=== PATIENT | male | born 1965 | race Caucasian/White ===

== ENCOUNTER 2019-10-31 12:57 | Inpatient (IN) | payer BC, SELFPAY ==
--- NOTE | ~2019-10-31 | XR_ITS ---
EXAMINATION: XR abdomen obstructive series DATE: 10/31/2019 14:02 INDICATION: Lower abdominal pain. Constipation. TECHNIQUE: Supine and upright views of the abdomen. FINDINGS: No prior studies for comparison. The visualized lung parenchyma is normal.. There is a nonobstructive bowel gas pattern. Gas and stool are seen throughout the colon to the level of the rectum. There is no free air. IMPRESSION: 1. No acute abdominal abnormality. Reviewed, dictated and finalized at location A.
--- NOTE | ~2019-10-31 | CT_ITS ---
EXAMINATION: CT abdomen pelvis w con DATE: 10/31/2019 14:35 INDICATION: Lower abdominal pain. Leukocytosis. TECHNIQUE: Computed tomography (CT) of the abdomen and pelvis was performed with 100 cc Omnipaque 350 intravenous contrast. The dose-length product was 592.62 mGy-cm. Automated exposure control and iter ative reconstruction technique were employed. COMPARISON: No prior studies for comparison. FINDINGS: Lung bases are unremarkable. Small subpleural bleb left lower lobe. Heart size normal. Smal l hiatal hernia. No significant pleural or pericardial effusion. Fatty infiltration of the liver. There are gallstones. Spleen, pancreas, adrenal glands and right kid vin are unremarkable. 3 mm nonobstructing left renal stone. There is thickening of the sigmoid colon with surrounding inflammation, consistent with acute diverti culitis. There is a low-density component containing gas contiguous with the sigmoid colon, suspiciou s for developing peridiverticular abscess. No obstruction. No free air is identified. No acute osseou s abnormality. IMPRESSION: 1. Acute sigmoid diverticulitis with probable developing peridiverticular abscess. 2: Cholelithiasis. 3: Nonobstructing left nephrolithiasis. Reviewed, dictated and finalized at location A. IMPRESSION: 1. Acute sigmoid diverticulitis with probable developing peridiverticular absce ss. 2: Cholelithiasis. 3: Nonobstructing left nephrolithiasis.
[2019-10-31 13:02] VITALS: BP 110/79; PULSE 94; RESP 16; TEMP 36.6; O2SAT 99
[2019-10-31 13:35] LABS: Basophils Absolute Auto 0.1 K/mm3 (0.0-0.1); Basophils Percent Auto 0.3 % (0.2-1.2); Eosinophils Absolute Auto 0.1 K/mm3 (0-0.3); Eosinophils Percent Auto 0.7 % (0-4.4); Hemoglobin 15.4 g/dL (14.0-18.0); Immature Granulocyte Absolute 0.09 K/mm3 (0.00-0.031); Immature Granulocyte Percent A 0.5 % (0-0.5); Lymphocytes Absolute Auto 2.44 K/mm3 (0.9-3.2); Lymphocytes Percent Auto 12.3 % (18.3-44.2); Mean Corpuscular HGB Conc 33.5 g/dl (32-36); Mean Corpuscular Volume 89.5 fl (80-100); Mean Platelet Volume 10.6 fl (7.4-10.4); Monocytes Absolute Auto 2.5 K/mm3 (0.1-0.6); Monocytes Percent Auto 12.8 % (2.6-8.5); Neutrophils Absolute Auto 14.6 K/mm3 (1.3-6.7); Neutrophils Percent Auto 73.4 % (45.5-73.1); Platelet Count Result 322 k/mm3 (150-375); Red Blood Count 5.14 M/mm3 (4.6-6.20); Red Cell Distribution Width 13.6 % (11.5-14.5); White Blood Count 19.8 K/mm3 (4.5-10.0)
--- NOTE | 2019-10-31 13:37 | ED.ABDPAIN ---
HPI - Abdominal Pain General Chief Complaint: Abdominal Pain <RHETT Figueroa Last Filed: 10/31/19 15:29> Stated Complaint: LOWER ABD PAIN <RHETT Figueroa Last Filed: 10/31/19 15:29> Time Seen by Provider: 10/31/19 13:14 <RHETT Figueroa Last Filed: 10/31/19 15:29> Source: patient <RHETT Figueroa Last Filed: 10/31/19 15:29> Mode of arrival: ambulatory <RHETT Figueroa Last Filed: 10/31/19 15:29> Limitations: no limitations <RHETT Figueroa Last Filed: 10/31/19 15:29> History of Present Illness HPI narrative: This is a 54 year old male that presents to the ER for lower abdominal pain x 4 days. Reports problems with constipation. Reports he took ex-lax 2 days ago and had a BM. Reports he has not been able to go since. Reports the pain was so bad last night it was keeping him up. Denies fever, vomiting, diarrhea, hematochezia, or dysuria. <RHETT Figueroa Last Filed: 10/31/19 15:29> Related Data Home Medications: Home Medications Medication Instructions Recorded Confirmed No Home Medications 10/31/19 10/31/19 <RHETT Figueroa Last Filed: 10/31/19 15:29> Allergies/Adverse Reactions: Allergies Allergy/AdvReac Type Severity Reaction Status Date / Time No Known Allergies Allergy Verified 07/01/19 12:17 <RHETT Figueroa Last Filed: 10/31/19 15:29> Review of Systems Review of Systems: Narrative: CONSTITUTIONAL: Denies fever GASTROINTESTINAL: Reports abdominal pain. Denies nausea, vomiting, or diarrhea. GENITOURINARY: Denies dysuria or hematuria. <RHETT Figueroa Last Filed: 10/31/19 15:29> All systems reviewed & are unremarkable except as noted in HPI and below <RHETT Figueroa Last Filed: 10/31/19 15:29> [facility] Social History Social History: Social History Smoking status: Heavy tobacco smoker Alcohol intake: current Substance use: never <Sofia Byrne PA-C - Last Filed: 10/31/19 15:29> Exam Narrative: Exam Narrative: GENERAL: Well-appearing, well-nourished, and in no acute distress. HEAD: Normocephalic, atraumatic. EYES: EOMI. CHEST: Clear to auscultation. No respiratory distress. No wheezes rales or rhonchi HEART: Regular rate and rhythm. No murmur heard. Normal peripheral pulses. ABDOMEN: Soft, nondistended, normal active bowel sounds. Mild tenderness to palpation throughout the lower abdomen, without guarding EXTREMITIES: Normal range of motion. No edema. SKIN: Warm, dry, no rash. NEURO: No focal deficits. Alert and oriented x3. PSYCH: Normal mood and affect <Sofia Byrne PA-C - Last Filed: 10/31/19 15:29> Course RFID DEVELOPER/PA Physician Supervision For this encounter, I have reviewed the PA documentation, treatment plan and medical decision making: And I have had [id number] time with the patient. On exam the abdomen is soft nondistended tender to palpation right lower quadrant left lower quadrant, no rebound or guarding agrees plan for admission for IV antibiotics and further inpatient treatment at this time discussed with patient all questions answered <Kobi Biswas DO - Last Filed: 10/31/19 15:22> Consultations Consultation #1: Spoke with Dr. Nieto about patient and work-up who will admit the patient for further IV antibiotics and observation. <Sofia Byrne PA-C - Last Filed: 10/31/19 15:29> Date: 10/31/19 <RHETT Figueroa Last Filed: 10/31/19 15:29> Time: : <RHETT Figueroa Last Filed: 10/31/19 15:29> Vital Signs Vital signs: Vital Signs Temperature 97.8 F 10/31/19 13:02 Pulse Rate 94 10/31/19 13:02 Respiratory Rate 16 10/31/19 13:02 Blood Pressure 110/79 10/31/19 13:02 Pulse Oximetry 99 10/31/19 13:02 Temperature 97.8 F 10/31/19 13:02 Pulse Rate 86 10/31/19 14:43 Respiratory Rate 18 10/31/19 14:
[2019-10-31 13:40] LABS: Alanine Aminotransferase 100 U/L (4-50); Albumin Level 4.2 g/dL (3.5-5.1); Alkaline Phosphatase 203 U/L (38-126); Aspartate Amino Transferase 59 U/L (17-59); Bilirubin,Total 0.8 mg/dL (0.2-1.3); Blood Urea Nitrogen 12 mg/dL (9-20); Calcium 9.4 mg/dL (8.4-10.2); Carbon Dioxide 26 mmol/L (22-30); Chloride 105 mmol/L (98-107); Estimated CRCL calculation 83 ml/min; Estimated Glomerular Filt Rate > 60; Glucose 120 mg/dL (75-110); Lipase 53 U/L (23-300); Potassium 4.1 mmol/L (3.4-5.0); Sodium 137 mmol/L (137-145)
[2019-10-31 14:21] LABS: Add Urine Microscopic? NO; Appearance Urine Clear (Clear); Bilirubin Urine Negative (Negative); Blood Urine Negative (Negative); Color Urine Yellow (Yellow); Glucose Urine UA Negative (Negative); Ketones Urine Negative (Negative); Leukocyte Esterase Ur Negative LEU/UL (Negative); Nitrate Urine Negative (Negative); Protein Urine Negative (Negative); Specific Grav Ur 1.016 (1.001-1.035); Urobilinogen Urine Negative mg/dL (<2.0)
[2019-10-31 14:43] VITALS: BP 108/74; PULSE 86; RESP 18; O2SAT 94
[2019-10-31 15:27] VITALS: BP 112/78; PULSE 90; RESP 20; O2SAT 98
--- NOTE | 2019-10-31 16:15 | ADMGEN ---
This patient, Chavez Guerrero, was admitted to Medical Room 343-01. Patient/family oriented to hospital policies and general routines including ID bracelet, bed and alarms, visiting hours, pain management, procedures, bathroom and other care routines, personal items, smoking policy, room service/diet, and visiting hours. Valuables list has been completed. Information on how to activate the Rapid Response Team has been discussed. Patient/Family are encouraged to report perceived risks to care and to ask questions if they do not understand what they are told or what they should do.
[2019-10-31] MEDS: SODIUM CHLORIDE 0.9% IV 1,000 ML 125 ML IV CONT (16:59)
[2019-10-31 17:18] VITALS: BMI 26.8
[2019-10-31 17:30] VITALS: PULSE 90; RESP 20; O2SAT 98
[2019-10-31] MEDS: IBUPROFEN IV 800 MG/200 ML 800 MG/200 ML BAG 400 MG IVPB (17:33)
[2019-10-31 20:01] VITALS: BP 103/64; PULSE 72; RESP 16; TEMP 36.2; O2SAT 96
[2019-10-31] MEDS: ENOXAPARIN 40 MG/0.4 ML SYRINGE SUB-Q (20:32)
[2019-10-31] MEDS: FAMOTIDINE 20 MG/2 ML VIAL IV PUSH (20:33)
[2019-10-31] MEDS: IBUPROFEN IV 800 MG/200 ML 800 MG/200 ML BAG 150 MG IVPB (23:22)
[2019-11-01] MEDS: IBUPROFEN IV 800 MG/200 ML 800 MG/200 ML BAG 150 MG IVPB ×4 (05:06→23:31)
[2019-11-01] MEDS: SODIUM CHLORIDE 0.9% IV 1,000 ML 125 ML IV CONT ×2 (05:06→17:20)
[2019-11-01 06:00] VITALS: BP 116/66; PULSE 88; RESP 16; TEMP 37.2; O2SAT 93
[2019-11-01 06:02] LABS: Basophils Absolute Auto 0.1 K/mm3 (0.0-0.1); Basophils Percent Auto 0.5 % (0.2-1.2); Eosinophils Absolute Auto 0.2 K/mm3 (0-0.3); Eosinophils Percent Auto 1.1 % (0-4.4); Hematocrit 44.6 % (42.0-52.0); Hemoglobin 14.6 g/dL (14.0-18.0); Immature Granulocyte Absolute 0.07 K/mm3 (0.00-0.031); Immature Granulocyte Percent A 0.4 % (0-0.5); Lymphocytes Absolute Auto 2.23 K/mm3 (0.9-3.2); Lymphocytes Percent Auto 13.2 % (18.3-44.2); Mean Corpuscular HGB Conc 32.7 g/dl (32-36); Mean Corpuscular Hemoglobin 29.5 pg (26-34); Mean Corpuscular Volume 90.1 fl (80-100); Mean Platelet Volume 10.7 fl (7.4-10.4); Monocytes Absolute Auto 1.8 K/mm3 (0.1-0.6); Monocytes Percent Auto 10.8 % (2.6-8.5); Neutrophils Absolute Auto 12.5 K/mm3 (1.3-6.7); Platelet Count Result 311 k/mm3 (150-375); Red Blood Count 4.95 M/mm3 (4.6-6.20); Red Cell Distribution Width 13.7 % (11.5-14.5); White Blood Count 16.9 K/mm3 (4.5-10.0)
[2019-11-01 06:16] LABS: Alanine Aminotransferase 71 U/L (4-50); Albumin Level 3.8 g/dL (3.5-5.1); Alkaline Phosphatase 180 U/L (38-126); Aspartate Amino Transferase 42 U/L (17-59); Bilirubin,Total 1.7 mg/dL (0.2-1.3); Blood Urea Nitrogen 12 mg/dL (9-20); Calcium 8.5 mg/dL (8.4-10.2); Carbon Dioxide 23 mmol/L (22-30); Chloride 107 mmol/L (98-107); Estimated CRCL calculation 105 ml/min; Estimated Glomerular Filt Rate > 60; Glucose 77 mg/dL (75-110); Potassium 3.9 mmol/L (3.4-5.0); Sodium 138 mmol/L (137-145)
[2019-11-01] MEDS: FAMOTIDINE 20 MG/2 ML VIAL IV PUSH ×2 (07:58→20:12)
[2019-11-01] MEDS: NICOTINE (*PBKC) 21 MG PATCH 1 PATCH TRANSDERM (08:00)
--- NOTE | 2019-11-01 11:49 | PCDIET ---
Nutrition consult for Low fiber diet instruction. Educated patient via Telephone due to COVID 19 precautions. Patient instructed on a low fiber diet today. All info in patient instructions for discharge. Thank you for the consult.
[2019-11-01 14:00] VITALS: BP 116/58; PULSE 78; RESP 16; TEMP 36.3; O2SAT 97
--- NOTE | 2019-11-01 15:05 | PM.IMHP ---
H&P: HPI History of Present Illness Chief complaint: peridiverticular abscess Narrative: Chavez Guerrero is a 54 year old male who came to the emergency room yesterday with persistent and severe lower abdominal pain. He is a very healthy man. He works as intermodal owner operator truck driver. He does smoke cigarettes but takes no medications. His pain started 4 days ago in the lower abdomen. He noticed this because the day prior, 5 days ago, he had a bowel movement and experience lower pelvic pain with the bowel movement. He is normally regular, having bowel movements every day. After going 2 days without a bowel movement, he took 2 Ex-Lax tabs. He did not have any results and the following day he took 2 more ex lax in the morning. He did go ahead and have a bowel movement but the pain became severe. He had pain with the bowel movement. The pain was severe enough that he could not sleep. He came to the emergency room on October 30. He was afebrile with normal vital signs. He did have some tenderness throughout his lower abdomen. His white blood cell count was quite elevated at 19,800. He had a CT scan which showed acute diverticulitis possibly with a developing perisigmoid abscess. Incidentally, gallstones were also noted. The patient was given IV ibuprofen last night. He has been on antibiotics. This morning he tells me that his pain is gone. He feels much better and would like to eat. He has never had pain like this before. He has never had diverticulitis before. Review of Systems Review of Systems: All systems reviewed & are unremarkable except as noted in HPI and below Constitutional: Constitutional: Denies headache(s) ENT: Denies headache(s) Cardiovascular: Cardiovascular: Denies chest pain and Denies dyspnea Respiratory: Respiratory: Denies cough and Denies dyspnea Gastrointestinal: Gastrointestinal: Reports as per HPI, Denies bloating, Denies constipation and Denies nausea Neurologic: Denies confusion and Denies headache(s) Psychiatric: Psychiatric: Denies confusion [facility] Family History Family History Father Family history of cardiovascular disease, Onset Age: 61 Mother Family history of lung cancer, Onset Age: 84 Social History Social History Smoking packs per day: 1 Smoking cigarettes per day: 20.0 Years smoked: 43 Smoking pack-years: 43.00 Smoking status: Heavy tobacco smoker Tobacco type: cigarettes Second hand tobacco smoke exposure: Yes Alcohol intake: current Drinks per week: 1 Substance use: never Substance use type: does not use Spiritual care concerns: No Agree to blood products: Yes Meds Home Medications and Allergies Home Medications Medication Instructions Recorded Confirmed Type No Home Medications 10/31/19 10/31/19 History Allergies Allergy/AdvReac Type Severity Reaction Status Date / Time No Known Allergies Allergy Verified 07/01/19 12:17 Vital Signs Vital Signs - 24 hr 10/31/19 15:27 10/31/19 17:30 10/31/19 20:01 Temperature 36.2 C L Pulse Rate 90 90 72 Respiratory Rate 20 20 16 Blood Pressure 112/78 103/64 Pulse Oximetry 98 98 96 11/01/19 06:00 11/01/19 14:00 Temperature 37.2 C 36.3 C L Pulse Rate 88 78 Respiratory Rate 16 16 Blood Pressure 116/66 116/58 L Pulse Oximetry 93 97 Exam Const: General: cooperative, comfortable, no acute distress, alert and awake HENMT: Head: normocephalic, atraumatic, no contusions and no scalp lesions Eyes: Conjunctivae: conjunctivae normal Sclera: sclerae normal Pupils: Equal, round and reactive pupils present EOM: EOMs intact bilaterally Neck: Neck: normal visual inspection, no lymphadenopathy, trachea midline, supple, nontender and no JVD Thyroid: abnormal thyroid Resp: Effort & Inspection: normal respiratory effort Auscultation: clear to auscultation bilaterally Cardio: Rate: regu
[2019-11-01] MEDS: ENOXAPARIN 40 MG/0.4 ML SYRINGE SUB-Q (20:12)
[2019-11-01 20:13] VITALS: BP 110/64; PULSE 79; RESP 16; TEMP 36.4; O2SAT 96
[2019-11-02] MEDS: SODIUM CHLORIDE 0.9% IV 1,000 ML 125 ML IV CONT (04:16)
[2019-11-02 05:11] LABS: Hematocrit 39.2 % (42.0-52.0); Hemoglobin 13.1 g/dL (14.0-18.0); Mean Corpuscular HGB Conc 33.4 g/dl (32-36); Mean Corpuscular Hemoglobin 29.6 pg (26-34); Mean Corpuscular Volume 88.7 fl (80-100); Mean Platelet Volume 10.1 fl (7.4-10.4); Platelet Count Result 325 k/mm3 (150-375); Red Blood Count 4.42 M/mm3 (4.6-6.20); Red Cell Distribution Width 13.3 % (11.5-14.5); White Blood Count 8.9 K/mm3 (4.5-10.0)
[2019-11-02 05:24] VITALS: BP 118/76; PULSE 64; RESP 14; TEMP 36.8; O2SAT 97
[2019-11-02 05:31] LABS: Blood Urea Nitrogen 10 mg/dL (9-20); Carbon Dioxide 25 mmol/L (22-30); Chloride 111 mmol/L (98-107); Estimated CRCL calculation 105 ml/min; Estimated Glomerular Filt Rate > 60; Glucose 83 mg/dL (75-110); Potassium 3.9 mmol/L (3.4-5.0); Sodium 137 mmol/L (137-145)
[2019-11-02] MEDS: IBUPROFEN IV 800 MG/200 ML 800 MG/200 ML BAG 150 MG IVPB (05:33)
--- NOTE | 2019-11-02 07:24 | PM.DS ---
DS: Diagnosis Admitting Diagnosis Admitting Diagnosis: Diverticulitis of large intestine without perforation or abscess without bleeding Discharge Diagnosis (1) Diverticulitis of sigmoid colon: Code(s): K57.32 - Diverticulitis of large intestine without perforation or abscess without bleeding Status: Acute (2) Smoker: Code(s): F17.200 - Nicotine dependence, unspecified, uncomplicated Status: Chronic DS: Summary Time Spent with Patient Time attestation: Total time spent providing and/or coordinating discharge services: Patient is a 54-year-old man who was admitted on 10/31/2019 with a 4 day history of lower abdominal pain. He had pain with bowel movement and constipation. He took to do collects tabs on 2 different occasions and had a bowel movement but the pain got worse. He came to the emergency room where he was noted to be tender in the lower abdomen with an elevated white blood cell count. CT scan showed acute diverticulitis with possible abscess developing. He was placed on bowel rest, analgesics, and IV Zosyn antibiotics. His pain went away the night of admission. It did not recur. His white count decreased to normal by hospital day 2. He was tolerating a low residue diet and had spoken with the dietitian for instructions on this at home. He is discharged now on 11/02/2019 on a low residue diet and Augmentin for 1 week. He will follow up with Dr. manning in 2 weeks. He will need a colonoscopy in approximately 3-4 weeks. He has never had diverticulitis before and no elective surgery is anticipated. Exam Const: General: comfortable and no acute distress; No confusion Orientation/consciousness: patient oriented x3 and No confusion Resp: Effort & Inspection: normal respiratory effort Auscultation: clear to auscultation bilaterally Cardio: Rate: regular rate Rhythm: regular rhythm GI: Inspection: normal to inspection and non-distended GI Palp: Yes Soft to palpation, No Tenderness to palpation present (GI), No Guarding due to palpation present (GI) and No Rebound tenderness present Auscultation: normal bowel sounds Neuro: General: patient oriented x3, no focal motor deficits and No confusion Extrem: General: no calf tenderness and no edema Psych: Affect: normal affect Insight: Good insight present (Psych) Judgement: Good judgement present (Psych) DS: Data Data Completed and Pending Labs on day of discharge: Labs from last 24 hours 11/02/19 11/02/19 04:53 04:53 WBC 8.9 RBC 4.42 L Hgb 13.1 L Hct 39.2 L MCV 88.7 MCH 29.6 MCHC 33.4 RDW 13.3 Plt Count 325 MPV 10.1 Sodium 137 Potassium 3.9 Chloride 111 H Carbon Dioxide 25 BUN 10 Creatinine 0.70 Estim Creat Clear Calc 105 Estimated GFR > 60 Glucose 83 Calcium 8.0 L Discharge Plan Discharge Attending physician on discharge: Scott Manning Consulting providers: Sofia Byrne Discharging Clinician: Scott Manning Anticipated Discharge Date/Time: 11/02/19 07:29 Patient Disposition: Home, Self-Care Activity: as tolerated Diet: low fiber Discharge Instructions: Activity as tolerated. May return to work on November 04. Patient Instructions: Piperacillin/Tazobactam (By injection), Low Fiber Diet (DC), Pain Management (DC), Acute Abdominal Pain (DC), Abscess (GEN), Antibiotic Form Stand Alone Forms: General Discharge Information Follow-up/Referrals: Scott Manning MD [Physician] - 2 Weeks Discharge Medications: New amoxicillin-pot clavulanate [Augmentin] 875-125 mg tablet 1 tablet PO Q12H Qty: 14 RF: 0 No Action No Home Medications RF: 0 Date of admission: 10/31/19 19:37 Primary Care Provider: Rosey Portillo Admitting Provider: Ten Yadav Attending physician on admission: Scott Manning Condition: Stable
[2019-11-02] MEDS: FAMOTIDINE 20 MG/2 ML VIAL IV PUSH (08:50)
[2019-11-02 08:57] VITALS: PULSE 64; RESP 14; O2SAT 97
== END 2019-11-02 09:15 | disposition home or self-care (01) | DRG 392 ==
LOC: ANHED 15:29 → ANH3MED 19:50
PROVIDERS: Physician Assistant; Admitting Provider Internal Medicine; Emergency Provider Emergency Medicine; PCP Family Medicine; Visit Provider Surgery
DX: K57.20 Diverticulitis of large intestine with perforation and abscess without bleeding (principal); F17.200 Nicotine dependence, unspecified, uncomplicated
CPT/HCPCS: 36415; 74019; 74177; 80048; 80053; 81003; 83690; 85025; 85027; 96365; 96367; 99285; A9270; J0131; J1650; J1741; J2543; J7030; Q9967

== ENCOUNTER 2020-04-25 14:46 | Observation (INO) | payer SELFPAY ==
--- NOTE | ~2020-04-25 | CT_ITS ---
EXAMINATION: CT abdomen pelvis w con EXAM DATE: 04/25/2020 16:37 INDICATION: One week of abdominal pain. TECHNIQUE: Spiral CT of the abdomen and pelvis was performed following intravenous injection of 100 m L Omnipaque 350. Axial, coronal and sagittal images were reviewed. The dose-length product (DLP) fo r this examination was 495.99 mGy-cm. The exposure was tailored according to patient size (auto mA e xposure control), and iterative reconstruction (ASIR) was used as additional dose reduction technique . Comparison is made to prior examination from 10/31/2019 . FINDINGS: The liver, spleen, adrenal glands and pancreas are unremarkable. There is a 2 cm periphera lly calcified gallstone, gallbladder otherwise unremarkable. Portal and splenic veins are patent. K idneys enhance symmetrically. There is no hydronephrosis. There is mild to moderate prostatomegaly, prostate measuring 5.5 cm transverse dimension. Some diffuse bladder wall thickening, could indicat e chronic cystitis. Acute cystitis not excludable. There is no retroperitoneal or pelvic lymphadenop athy. There is mild to moderate scattered arteriosclerotic disease. There is mild to moderate scattered sigmoid colonic diverticulosis. There is a 10 cm region of signif icantly edematous sigmoid colonic wall with adjacent inflammation, and small fluid density region of fluid along the external portion of this wall measuring 2.4 cm, without organized contain wall. There are a couple of punctate foci of gas within this. Most likely acute diverticulitis complicated by mi croperforation, early developing small perisigmoid abscess. Please note that there was very similar a ppearance to the prior CT scan in October, correlate with that course and treatment. The appendix is normal. The stomach and small bowel are unremarkable. There is expected amount of c olonic stool. No free intraperitoneal gas. The heart is normal in size. There are no pericardial or pleural effusions. The lung bases are unremarkable. There are no osteoblastic or osteolytic les ions identified. IMPRESSION: 1. Findings consistent with recurrent sigmoid diverticulitis complicated by microperforation, small early abscess without organized wall. 2. Diffuse bladder wall thickening could be acute or chronic cystitis, or reactive from adjacent per isigmoid inflammation. 3. Prostatomegaly. 4. Cholelithiasis. Reviewed, dictated and finalized at location A. IMPRESSION: 1. Findings consistent with recurrent sigmoid diverticulitis complicated by mi croperforation, small early abscess without organized wall. 2. Diffuse bladder wall thickening could be acute or chronic cystitis, or reac tive from adjacent perisigmoid inflammation. 3. Prostatomegaly. 4. Cholelithiasis.
[2020-04-25 14:55] VITALS: BP 114/90; PULSE 80; RESP 18; TEMP 36.2; O2SAT 97
--- NOTE | 2020-04-25 15:07 | ED.ABDPAIN ---
HPI - Abdominal Pain General Chief Complaint: Abdominal Pain Stated Complaint: ABD PAIN X1WK Time Seen by Provider: 04/25/20 14:59 Source: patient Mode of arrival: ambulatory Limitations: no limitations History of Present Illness HPI narrative: Patient is a 55-year-old male complaining of left lower quadrant pain radiating to his left flank, 6 out of 10, sharp accompanied by dysuria started approximately 1 week ago. Patient denies any nausea vomiting diarrhea or fever. Patient denies any chest pain or shortness of breath. Related Data Allergies Allergy/AdvReac Type Severity Reaction Status Date / Time No Known Allergies Allergy Verified 04/25/20 14:59 Review of Systems Review of Systems: All systems reviewed & are unremarkable except as noted in HPI and below Constitutional: Constitutional: Denies body ache(s), Denies chills, Denies excessive sweating, Denies fatigue, Denies fever(s), Denies headache(s), Denies lethargy, Denies malaise, Denies weakness and Denies weight loss Eyes: Eyes: Denies blurry vision, Denies change in vision and Denies loss of vision ENT: Denies dizziness, Denies ear discharge, Denies headache(s), Denies lip swelling, Denies epistaxis, Denies nasal congestion, Denies neck pain, Denies throat swelling and Denies tongue swelling Cardiovascular: Cardiovascular: Denies chest pain, Denies chest pain at rest, Denies chest pain with activity, Denies diaphoresis, Denies rapid heart rate, Denies edema, Denies irregular heart rhythm, Denies lightheadedness, Denies palpitations, Denies dyspnea and Denies dyspnea on exertion Respiratory: Respiratory: Denies chest congestion, Denies cough, Denies hemoptysis, Denies dyspnea and Denies dyspnea on exertion Gastrointestinal: Gastrointestinal: Denies melena, Denies hematochezia, Denies diarrhea, Denies nausea, Denies vomiting and Denies hematemesis Musculoskeletal: Musculoskeletal: Denies abnormal gait, Denies deformity, Denies joint swelling, Denies limited range of motion, Denies neck pain and Denies numbness Neurologic: Denies Abnormal speech present, Denies abnormal gait, Denies confusion, Denies dizziness, Denies headache(s), Denies focal weakness, Denies loss of vision, Denies numbness, Denies Other visual disturbances, Denies Sensory deficit (Neuro) and Denies weakness Psychiatric: Psychiatric: Denies confusion, Denies depression, Denies auditory hallucinations, Denies homicidal ideation and Denies suicidal ideation Endocrine: Endocrine: Denies cold intolerance, Denies excessive sweating, Denies fatigue, Denies heat intolerance and Denies palpitations Hematologic/Lymphatic: Hematologic/Lymphatic: Denies easy bleeding and Denies easy bruising Allergic/Immunologic: Allergic/Immunologic: Denies lip swelling, Denies throat swelling and Denies tongue swelling PMFSH Family History Family History Father Family history of cardiovascular disease, Onset Age: 61 Mother Family history of lung cancer, Onset Age: 84 Social History Social History Smoking packs per day: 1 Smoking cigarettes per day: 20.0 Years smoked: 43 Smoking pack-years: 43.00 Smoking status: Heavy tobacco smoker Tobacco type: cigarettes Second hand tobacco smoke exposure: Yes Alcohol intake: current Drinks per week: 1 Substance use: never Substance use type: does not use Gender identity (if verbalized by the patient): Male Spiritual care concerns: No Agree to blood products: Yes Exam Const: General: cooperative, healthy appearing, comfortable, no acute distress, well developed, alert and awake; No confusion Orientation/consciousness: oriented to person, oriented to place, oriented to time, patient oriented x3 and No confusion Limitations: no limitations HENMT: Head: normal to inspection, normocephalic and atraumatic Ears: hearing grossly normal bilaterally, TM nor
[2020-04-25] MEDS: SODIUM CHLORIDE 0.9% IV 1,000 ML 999 ML IV CONT (15:10)
[2020-04-25] MEDS: KETOROLAC 30 MG/ML VIAL (*BKC) IV PUSH (15:11)
[2020-04-25 15:41] LABS: Basophils Absolute Auto 0.1 K/mm3 (0.0-0.1); Basophils Percent Auto 0.3 % (0.2-1.2); Eosinophils Absolute Auto 0.2 K/mm3 (0-0.3); Eosinophils Percent Auto 1.3 % (0-4.4); Hematocrit 49.2 % (42.0-52.0); Hemoglobin 16.2 g/dL (14.0-18.0); Immature Granulocyte Absolute 0.08 K/mm3 (0.00-0.031); Immature Granulocyte Percent A 0.5 % (0-0.5); Lymphocytes Absolute Auto 2.62 K/mm3 (0.9-3.2); Lymphocytes Percent Auto 15.2 % (18.3-44.2); Mean Corpuscular HGB Conc 32.9 g/dl (32-36); Mean Corpuscular Hemoglobin 30.5 pg (26-34); Mean Corpuscular Volume 92.5 fl (80-100); Mean Platelet Volume 10.6 fl (7.4-10.4); Monocytes Absolute Auto 2.2 K/mm3 (0.1-0.6); Neutrophils Percent Auto 69.7 % (45.5-73.1); Platelet Count Result 356 k/mm3 (150-375); Red Blood Count 5.32 M/mm3 (4.6-6.20); Red Cell Distribution Width 13.6 % (11.5-14.5); White Blood Count 17.2 K/mm3 (4.5-10.0)
[2020-04-25 15:46] LABS: Add Urine Microscopic? YES; Appearance Urine Clear (Clear); Bilirubin Urine Negative (Negative); Blood Urine 1+ (Negative); Color Urine Yellow (Yellow); Glucose Urine UA Negative (Negative); Ketones Urine Negative (Negative); Leukocyte Esterase Ur Negative LEU/UL (Negative); Mucus Urine Heavy /lpf; Nitrate Urine Negative (Negative); Protein Urine Negative (Negative); RBC Urine 0-2 /hpf (0-2); Specific Grav Ur 1.023 (1.001-1.035); Urobilinogen Urine Negative mg/dL (<2.0); WBC Urine 0-3 /hpf
[2020-04-25 16:17] LABS: Alanine Aminotransferase 32 U/L (4-50); Albumin Level 3.6 g/dL (3.5-5.1); Alkaline Phosphatase 111 U/L (38-126); Anion Gap 5 mmol/L (8-16); Aspartate Amino Transferase 30 U/L (17-59); Bilirubin,Total 0.9 mg/dL (0.2-1.3); Blood Urea Nitrogen 14 mg/dL (9-20); Calcium 8.3 mg/dL (8.4-10.2); Carbon Dioxide 28 mmol/L (22-30); Chloride 107 mmol/L (98-107); Estimated CRCL calculation 104 ml/min; Estimated Glomerular Filt Rate > 60; Glucose 99 mg/dL (75-110); Lipase 43 U/L (23-300); Potassium 4.2 mmol/L (3.4-5.0); Sodium 140 mmol/L (137-145)
[2020-04-25 17:18] VITALS: BP 120/87; PULSE 75; RESP 18; O2SAT 100
--- NOTE | 2020-04-25 19:08 | PM.IMHP ---
H&P: HPI History of Present Illness Date/Time: 04/25/20 19:08 Chief complaint: ABD PAIN X1WK Narrative: Chavez Guerrero is a 55 year old male who states that yesterday began having some lower abdominal pain that radiated toward the center and was that about his belt line. This was similar to pain he had in October of last year and therefore he came to the emergency room today. CT scan further workup the emergency room reveals a 10 cm segment of sigmoid colon that is inflamed with small few small air bubbles just outside the colon along with some fluid. Micro perforation is proposed. Elevated white count is present. Therefore, I suggest that he be admitted for IV antibiotics and observation period will then try to convert him to oral antibiotics and treat him with the 10-14 day course of antibiotics. He was willing to proceed this with this. Will let him have clear liquids tonight since he is not nauseated. Review of Systems Constitutional: Constitutional: Reports as per HPI and Denies headache(s) Eyes: Eyes: Denies loss of vision and Denies eye pain ENT: Reports Normal hearing present, Denies change in voice, Denies dizziness and Denies headache(s) Cardiovascular: Cardiovascular: Denies chest pain and Denies dyspnea Respiratory: Respiratory: Denies dyspnea and Denies wheezing Comments: History of 1 pack a day smoker. Gastrointestinal: Gastrointestinal: Reports as per HPI, Reports abdominal pain ( Mainly left lower quadrant suprapubic area) and Reports change in stool character ( was recently constipated for a day or two) Comments: he states he has been trying to stick to a high-fiber diet but probably has not done it is religiously as he should. I suggest that he begin considering a daily fiber supplement also because this is happened again. Musculoskeletal: Musculoskeletal: Denies back pain and Denies arthralgias Neurologic: Reports Normal hearing present, Denies dizziness, Denies headache(s), Denies loss of vision and Denies memory loss Psychiatric: Psychiatric: Denies memory loss and Denies panic attacks Endocrine: Endocrine: Reports no additional endocrine complaints Hematologic/Lymphatic: Hematologic/Lymphatic: Reports no additional hematologic/lymphatic complaints Allergic/Immunologic: Allergic/Immunologic: Denies wheezing PMFSH Past Medical History Medical History Cholelithiasis Family History Family History Father Family history of cardiovascular disease, Onset Age: 61 Mother Family history of lung cancer, Onset Age: 84 Social History Social History Smoking packs per day: 1 Smoking cigarettes per day: 20.0 Years smoked: 43 Smoking pack-years: 43.00 Smoking status: Heavy tobacco smoker Tobacco type: cigarettes Second hand tobacco smoke exposure: Yes Alcohol intake: current Drinks per week: 1 Substance use: never Substance use type: does not use Gender identity (if verbalized by the patient): Male Spiritual care concerns: No Agree to blood products: Yes Meds Home Medications and Allergies Allergies Allergy/AdvReac Type Severity Reaction Status Date / Time No Known Allergies Allergy Verified 04/25/20 14:59 Vital Signs Vital Signs - 24 hr 04/25/20 14:55 04/25/20 17:18 Temperature 36.2 C L Pulse Rate 80 75 Respiratory Rate 18 18 Blood Pressure 114/90 120/87 Pulse Oximetry 97 100 Exam Const: General: cooperative, no acute distress, well developed, alert and awake Nutritional Appearance: well nourished Orientation/consciousness: patient oriented x3 Limitations: no limitations HENMT: Head: normal to inspection, normocephalic and atraumatic Ears: hearing grossly normal bilaterally General nose exam: Normal external nose present Face and sinus: normal facial exam Mouth: Yes Normal or
[2020-04-25 20:07] VITALS: BP 109/59; PULSE 72; RESP 18; TEMP 36.6; O2SAT 98
[2020-04-25] MEDS: LACTATED RINGERS 1,000 ML 100 ML IV CONT (21:12)
[2020-04-25 22:09] VITALS: BP 113/67; PULSE 70; RESP 18; TEMP 36.3; O2SAT 98
[2020-04-25] MEDS: HYDROcodone/acetaminophen (*CRX) 5-325 MG TABLET 1 TAB PO (23:02)
--- NOTE | 2020-04-26 04:52 | ADMGEN ---
This patient, Chavez Guerrero, was admitted to Medical Room 258-01 on 04/25/2020 @ 2049. Patient/family oriented to hospital policies and general routines including ID bracelet, bed and alarms, visiting hours, pain management, procedures, bathroom and other care routines, personal items, smoking policy, room service/diet, and visiting hours. Information on how to activate the Rapid Response Team has been discussed. Patient/Family are encouraged to report perceived risks to care and to ask questions if they do not understand what they are told or what they should do.
[2020-04-26 04:59] LABS: Basophils Absolute Auto 0.1 K/mm3 (0.0-0.1); Basophils Percent Auto 0.4 % (0.2-1.2); Eosinophils Absolute Auto 0.2 K/mm3 (0-0.3); Eosinophils Percent Auto 1.3 % (0-4.4); Hematocrit 45.1 % (42.0-52.0); Hemoglobin 14.9 g/dL (14.0-18.0); Immature Granulocyte Absolute 0.08 K/mm3 (0.00-0.031); Immature Granulocyte Percent A 0.5 % (0-0.5); Lymphocytes Absolute Auto 3.47 K/mm3 (0.9-3.2); Lymphocytes Percent Auto 20.8 % (18.3-44.2); Mean Corpuscular Hemoglobin 30.7 pg (26-34); Mean Corpuscular Volume 92.8 fl (80-100); Mean Platelet Volume 10.2 fl (7.4-10.4); Monocytes Absolute Auto 1.8 K/mm3 (0.1-0.6); Monocytes Percent Auto 10.7 % (2.6-8.5); Neutrophils Absolute Auto 11.1 K/mm3 (1.3-6.7); Neutrophils Percent Auto 66.3 % (45.5-73.1); Platelet Count Result 356 k/mm3 (150-375); Red Blood Count 4.86 M/mm3 (4.6-6.20); Red Cell Distribution Width 13.5 % (11.5-14.5); White Blood Count 16.7 K/mm3 (4.5-10.0)
[2020-04-26] MEDS: HYDROcodone/acetaminophen (*CRX) 7.5-325 MG TABLET 1 TAB PO ×2 (05:05→11:40)
[2020-04-26 05:23] LABS: Anion Gap 5 mmol/L (8-16); Blood Urea Nitrogen 14 mg/dL (9-20); Calcium 8.4 mg/dL (8.4-10.2); Carbon Dioxide 29 mmol/L (22-30); Chloride 107 mmol/L (98-107); Estimated CRCL calculation 92 ml/min; Estimated Glomerular Filt Rate > 60; Glucose 100 mg/dL (75-110); Magnesium 2.1 mg/dL (1.6-2.3); Potassium 4.3 mmol/L (3.4-5.0); Sodium 141 mmol/L (137-145)
[2020-04-26 06:00] VITALS: BP 109/73; PULSE 66; RESP 16; TEMP 36.8; O2SAT 97
[2020-04-26 10:33] VITALS: BMI 26.2
--- NOTE | 2020-04-26 13:56 | PM.DS ---
DS: Admitting Diagnosis Admitting Diagnosis Admitting Diagnosis: acute sigmoid diverticulitis with perforation smoker Cholelithiasis, asymptomatic DS: Discharge Diagnosis Discharge Diagnosis (1) Diverticulitis of sigmoid colon: Onset Date: ~04/24/20 Code(s): K57.32 - Diverticulitis of large intestine without perforation or abscess without bleeding Status: Acute Assessment and Plan: Patient will stick to a low-fiber diet for 10 days, he will take Augmentin 875/125 twice a day for 10 days and Flagyl 500 mg 1 p.o. t.i.d. for 10 days. He will then follow up in the office with the office visit and most likely proceed with 1 month later to colonoscopy. He has never had 1 before. (2) Cholelithiasis: Onset Date: ~09/2019 Code(s): K80.20 - Calculus of gallbladder without cholecystitis without obstruction Status: Acute Assessment and Plan: This was also seen on his previous CT scan early this year. He has not have any significant symptoms. He has where this and we will provide him with more information regarding laparoscopic cholecystectomy when comes to the office. If he remains asymptomatic will just have him stick to a low-fat diet. (3) Smoker: Onset Date: Unknown Code(s): F17.200 - Nicotine dependence, unspecified, uncomplicated Status: Chronic Assessment and Plan: Patient was counseled on smoking cessation. I encouraged him to stop completely but at least to cut back to less than half a pack a day while he is on the antibiotics for this different diverticulitis as he will heal in fight the infection better. DS: Summary Hospital Course Reason for hospitalization: Acute sigmoid diverticulitis with possible microperforation along the sigmoid colon with few but free air bubbles along the colon wall. Hospital Course: patient had an uneventful course of observation admission to the hospital. For 24 hours he was observed. His pain did not worsen but rather improved. He was continued on IV antibiotics during the course of the hospitalization and will be continued on oral antibiotics at his discharge. He did not have bowel have a bowel movement in the hospital but he was passing gas on the day of discharge and feeling much better. If the abdomen was not palpated he did not have any abdominal pain this date. He did Tolerate a full liquid diet at lunch today and will be slowly progressing his diet toward a low-fiber diet over the next week.. Status at Discharge Cognitive/behavioral status at discharge: Normal Functional status at discharge: independent ambulation Overall status at discharge: patient is back to baseline Time Spent with Patient Time attestation: Total time spent providing and/or coordinating discharge services: 40 minutes Time spent: Greater than 30 minutes Specific discharge activities: patient can walk as much as he wants. 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 He knows he can take ibuprofen 600 mg 3 to 4 times a day if needed. He will call the office to make an appointment for a follow-up visit for around the time when he runs out of his antibiotics. Exam Const: General: cooperative, no acute distress, alert and awake Orientation/consciousness: patient oriented x3 HENMT: Mouth: Yes moist mucous membranes Neck: Neck: normal visual inspection Chest: Chest palpation & inspection: normal inspection of the chest Resp: Effort & Inspection: normal respiratory effort Auscultation: clear to auscultation bilaterally and wheezes ( Slight end expiratory wheeze left side.) Cardio: Jugular venous distension: no JVD Rate: regular rate Rhythm: regular rhythm GI: Inspection: normal to inspection GI Palp: Yes abdominal tenderness ( With deeper palpation left lower quadrant) Auscultation: normal bowel sounds Rectal Exam: deferred Back/Spine/Pelvis: Back: No mass and No warmth Skin: General skin exam: normal
[2020-04-26 14:13] VITALS: BP 119/74; PULSE 79; RESP 18; TEMP 36.9; O2SAT 94
== END 2020-04-26 14:32 | disposition home or self-care (01) ==
LOC: ANHED 17:03 → ANH2MED 20:14
PROVIDERS: Admitting Provider Surgery; Emergency Provider Emergency Medicine; PCP Family Medicine; Visit Provider Surgery
DX: K57.32 Diverticulitis of large intestine without perforation or abscess without bleeding (principal); K80.20 Calculus of gallbladder without cholecystitis without obstruction; F17.210 Nicotine dependence, cigarettes, uncomplicated
CPT/HCPCS: 36415; 74177; 80048; 80053; 81001; 83690; 83735; 85025; 96361; 96365; 96375; 99285; A9270; G0378; J1885; J2543; J7030; J7120; Q9967

== ENCOUNTER 2020-07-08 00:41 | Outpatient (CLI) | payer BC, SELFPAY ==
[2020-07-08 19:42] LABS: SARS-CoV-2 RNA PCR Negative
== END 2020-07-08 00:42 | disposition home or self-care (01) ==
LOC: ANHCOVIDDT 00:41
PROVIDERS: PCP Family Medicine; Visit Provider Surgery
DX: Z01.812 Encounter for preprocedural laboratory examination (principal); Z20.822 Contact with and (suspected) exposure to COVID-19
CPT/HCPCS: C9803; U0003

== ENCOUNTER 2020-07-11 00:26 | Day surgery (SDC) | payer BC, SELFPAY ==
[2020-06-30 10:08] VITALS: BMI 27.1
[2020-07-11 11:42] VITALS: BP 125/80; PULSE 79; RESP 20; TEMP 36.6; O2SAT 100
[2020-07-11] MEDS: LACTATED RINGERS 1,000 ML 150 ML IV CONT (11:59)
--- NOTE | 2020-07-11 12:12 | WPDANESEPPF ---
Anes - Initial Pre Proc Eval Procedure: Operation Date: 07/11/20 13:00 Proposed Procedures p Colonoscopy With Possible Biopsy or Polypectomy - Darnell Hernandez MD Date/Time: 07/11/20 12:12 Surgeon: Darnell Hernandez MD Pre Op Diagnosis: recurrent acute diverticulitis Patient Data Age: 55 Gender: M Height: 5 ft 10 in Weight: 83 kg Last Vital Signs Temp 97.8 F 07/11/20 11:42 Pulse 79 07/11/20 11:42 Resp 20 07/11/20 11:42 BP 125/80 07/11/20 11:42 Pulse Ox 100 07/11/20 11:42 Allergies Allergy/AdvReac Type Severity Reaction Status Date / Time No Known Allergies Allergy Verified 07/11/20 11:41 Home Medications Medication Instructions Recorded Confirmed Type aspirin 325 mg PO BID 06/30/20 06/30/20 History ibuprofen [Advil] 200 mg PO Q6H PRN 06/30/20 06/30/20 History Patient hx anesthesia problems: none Family hx anesthesia problems: none PMFSH Past Medical History Medical History Cholelithiasis (~09/2019) Family History Family History Father Family history of cardiovascular disease, Onset Age: 61 Mother Family history of lung cancer, Onset Age: 84 Social History Social History Smoking packs per day: 1 Smoking cigarettes per day: 20.0 Years smoked: 40 Smoking pack-years: 40.00 Smoking status: Current every day smoker Tobacco type: cigarettes Second hand tobacco smoke exposure: Yes Alcohol intake: current Drinks per week: 2 Substance use: never Substance use type: does not use Living arrangements: with family Gender identity (if verbalized by the patient): Male Spiritual care concerns: No Agree to blood products: Yes Anes - Eval Final PreProcedure Day of Procedure 07/11/20 12:12 Patient weight: overweight Heart: regular rate and rhythm Lungs: clear to auscultation Airway: Mallampati scale class II Neurological: alert and oriented Last oral intake: >/= 8 hours ASA classification: II Emergent: no Anesthetic plan: proceed Anesthesia type and monitoring: general GIVS and standard monitoring Informed Consent: The patient's anesthetic plan and its attendant risks and benefits were discussed with the patient/family/POA. Questions were solicited and answers provided to the satisfaction of the patient/family/POA.
--- NOTE | 2020-07-11 12:56 | WPDHPUPDATE1 ---
History and Physical Update Update Date/Time: 07/11/20 12:56 History and Physical has been reviewed, including an updated exam of the patient. There are NO changes in the patient's condition. Risks, benefits, and alternatives have been discussed and questions answered. Patient agrees to proceed with procedure.
[2020-07-11 13:57] VITALS: BP 143/83; PULSE 63; RESP 20; TEMP 36.1; O2SAT 96
[2020-07-11 14:07] VITALS: BP 114/85; PULSE 64; RESP 22; O2SAT 97
[2020-07-11 14:17] VITALS: BP 139/89; PULSE 59; RESP 22; O2SAT 98
[2020-07-11 14:27] VITALS: BP 125/90; PULSE 64; RESP 20; O2SAT 99
== END 2020-07-11 14:34 | disposition home or self-care (01) ==
PROVIDERS: PCP Family Medicine; Visit Provider Surgery
PROC: 0DJD8ZZ Inspection of Lower Intestinal Tract, Via Natural or Artificial Opening Endoscopic (ICD-10-PCS; CPT 45378; principal; 2020-07-11 13:00)
DX: F17.210 Nicotine dependence, cigarettes, uncomplicated (principal); K64.8 Other hemorrhoids
CPT/HCPCS: 45378; J2405; J2704; J7120

== ENCOUNTER 2020-08-16 10:40 | Emergency (ER) | payer BC, SELFPAY ==
--- NOTE | ~2020-08-16 | XR_ITS ---
XR shoulder RT min 2V DATE: 08/16/2020 11:09 INDICATION: Right shoulder pain 3 days following lifting injury TECHNIQUE: 4 views COMPARISON: None FINDINGS: There is probable old fracture deformity at the lateral aspect of the right clavicle. If there is concern for recent fracture, consider CT right shoulder examination. Otherwise no fracture or dislocation is evident. No periosteal reaction or bone destruction. No abnor mal soft tissue calcification is detected. IMPRESSION: Probable old fracture deformity of the lateral clavicle Reviewed, dictated and finalized at location A. [facility]
--- NOTE | 2020-08-16 10:44 | ED.GENADULT ---
HPI - General Adult General Chief complaint: Extremity Injury, Upper Stated complaint: Shoulder Pain Time Seen by Provider: 08/16/20 10:43 Source: patient Mode of arrival: ambulatory Limitations: no limitations History of Present Illness HPI narrative: 55-year-old male patient presents to the [facility] with complaints of right shoulder pain x3 days. Patient states he works at [employer] and was unloading some pallets off of the truck this past Tuesday and he heard a pop in his shoulder. 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 Patient states he did take aspirin and a muscle relaxer which he states really has not helped much. Patient denies any tingling or numbness down the arm. Related Data Allergies Allergy/AdvReac Type Severity Reaction Status Date / Time No Known Allergies Allergy Verified 07/11/20 11:41 Review of Systems Review of Systems: Narrative: CONSTITUTIONAL: Denies fever, chills, or sweats. EYES: Denies visual changes, redness, or discharge. ENT: Denies rhinorrhea, congestion, sore throat, or otalgia. CARDIOVASCULAR: Denies chest pain, palpitations, or edema. RESPIRATORY: Denies cough or dyspnea. GASTROINTESTINAL: Denies abdominal pain, nausea, vomiting, or diarrhea. GENITOURINARY: Denies dysuria or hematuria. SKIN: Denies rash or itching. MUSCULOSKELETAL: Denies back pain, joint pain, or myalgia. Positive right shoulder pain x3 days NEUROLOGIC: Denies headache, numbness, or weakness. PSYCHIATRIC: Denies anxiety or depression. [facility] Past Medical History Medical History (Updated 08/16/20 @ 11:24 by NICOLE June) Cholelithiasis (~09/2019) Chronic back pain Spina bifida Depression Diverticulitis of both large and small intestine with perforation and abscess Diverticulitis of sigmoid colon (~04/24/20) Fractures Left clavicle Overweight (BMI 25.0-29.9) Sleep apnea Family History Family History Father Family history of cardiovascular disease, Onset Age: 61 Mother Family history of lung cancer, Onset Age: 84 Social History Social History Smoking packs per day: 1 Smoking cigarettes per day: 20.0 Years smoked: 40 Smoking pack-years: 40.00 Smoking status: Current every day smoker Tobacco type: cigarettes Second hand tobacco smoke exposure: Yes Alcohol intake: current Drinks per week: 2 Substance use: never Substance use type: does not use Gender identity (if verbalized by the patient): Male Spiritual care concerns: No Agree to blood products: Yes Comments At the time of my signature I agree with nursing past medical history, surgical, social, and family history. There is no relevant family history pertinent to the presenting complaint. You can Exam Narrative: Exam Narrative: GENERAL: Well-appearing, well-nourished, and in no acute distress. HEAD: Normocephalic, atraumatic. EYES: PERRLA and EOMI. ENT: Nares clear, no rhinorrhea or epistaxis. Mucous membranes moist. NECK: Supple. No lymphadenopathy CHEST: Clear to auscultation. No respiratory distress. HEART: Regular rate and rhythm. No murmur heard. Normal peripheral pulses. ABDOMEN: Soft, nontender, nondistended, normal active bowel sounds. EXTREMITIES: The R shoulder is without obvious asymmetry or deformity when compared to the L shoulder. No surface trauma, ecchymosis, crepitus. No bony deformity or prominence of the humeral head No erythema, warmth, swelling. tenderness to palpation to A to C joint, no tenderness to the acromion, scapula or humeral head. No tenderness to palpation of the bicipital groove or soft tissues. No tenderness to palpation of the m
[2020-08-16 10:52] VITALS: BP 126/85; PULSE 70; RESP 18; TEMP 36.6; O2SAT 99
[2020-08-16] MEDS: KETOROLAC (*BKC) 60 MG/2 ML VIAL IM (11:05)
== END 2020-08-16 11:31 | disposition home or self-care (01) ==
PROVIDERS: Emergency Provider Nurse Practitioner Family; PCP Family Medicine
DX: S49.91XA Unspecified injury of right shoulder and upper arm, initial encounter (principal); X50.3XXA Overexertion from repetitive movements, initial encounter; Y99.0 Civilian activity done for income or pay
CPT/HCPCS: 73030; 96372; 99213; G0463; J1885

== ENCOUNTER 2021-01-28 10:32 | Outpatient (CLI) | payer BC, SELFPAY ==
--- NOTE | ~2021-01-28 | CT_ITS ---
EXAMINATION: CT lung screening DATE: 01/28/2021 11:01 INDICATION: Personal history of tobacco dependence, current smoker with 40 pack year history TECHNIQUE: Computed tomography (CT) of the chest was performed without intravenous contrast. The dose -length product (DLP) was 142.64 mGy-cm. Automated exposure control and iterative reconstruction tech Blogic[employer] were employed. COMPARISON: None FINDINGS: There is mild emphysema. No suspicious pulmonary nodules are identified. Calcified pulmonar y nodules are consistent with old granulomatous disease. The lungs are free of acute opacities. No pa thologically enlarged thoracic lymph nodes are identified. The heart size is normal. A stone is prese nt in the nondistended gallbladder. IMPRESSION: 1. Lung-RADS category 1: Negative. Continue annual screening with noncontrast low-dose chest CT in 12 months. Reviewed, dictated and finalized at location A. IMPRESSION: 1. Lung-RADS category 1: Negative. Continue annual screening with noncontrast l ow-dose chest CT in 12 months.
== END 2021-01-28 10:33 | disposition home or self-care (01) ==
LOC: ANHIMG 10:34
PROVIDERS: PCP Family Medicine; Visit Provider Physician Assistant
DX: Z12.2 Encounter for screening for malignant neoplasm of respiratory organs (principal); Z87.891 Personal history of nicotine dependence
CPT/HCPCS: 71271

== ENCOUNTER → 2021-07-06 14:58 | Outpatient (CLI) | payer BC, SELFPAY ==
--- NOTE | ~2021-07-06 | XR_ITS ---
EXAMINATION: XR shoulder RT min 2V EXAM DATE: 07/06/2021 15:45 INDICATION: No known recent injury provided at this time. Pain of the right shoulder. TECHNIQUE: The following right shoulder projections obtained: frontal projection with internal rotati on, frontal projection with external rotation, Grashey, and axillary (4+ views). Comparison is made t o prior examination from 08/16/2020. FINDINGS: Appearance to the distal tip of the right clavicle suggests evidence of an old fracture wit h nonunion. There is no glenohumeral joint, moderate acromioclavicular joint primary osteoarthritis. There are no acute fractures or dislocations identified. There is no subcutaneous gas. The soft tis hipolito is unremarkable. There are no radiopaque foreign bodies. 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 Reviewed, dictated and finalized at location A. [employer] IMPRESSION: Distal clavicular tip appearance suggests old fracture with nonunio n, moderate acromioclavicular osteoarthritis.
== END ==
PROVIDERS: PCP Family Medicine; Visit Provider Nurse Practitioner Gerontology
DX: M25.511 Pain in right shoulder (principal); M19.011 Primary osteoarthritis, right shoulder
CPT/HCPCS: 73030

== ENCOUNTER → 2022-10-25 08:19 | Outpatient (CLI) | payer BC, SELFPAY ==
--- NOTE | ~2022-10-25 | CT_ITS ---
EXAMINATION: CT lung screening DATE: 10/25/2022 08:32 INDICATION: Personal history of nicotine dependence, current smoker with 40 pack year history TECHNIQUE: Computed tomography (CT) of the chest was performed without intravenous contrast. The dose -length product (DLP) was 172.71 mGy-cm. Automated exposure control and iterative reconstruction tech Engezni were employed. COMPARISON: 01/28/2021 FINDINGS: There is mild emphysema. No suspicious pulmonary nodules are identified. The lungs are free of acute opacities. Calcified pulmonary nodules are consistent with old granulomatous disease. No pa thologically enlarged thoracic lymph nodes are identified. The heart size is normal. There is a stabl e, subtle area of fluid attenuation impressing on the posterior wall of the trachea, likely small eso phageal diverticulum. A stone is present in the nondistended gallbladder. There is mild thoracic spon dylosis. IMPRESSION: 1. Lung-RADS category 1: Negative. Continue annual screening with noncontrast low-dose chest CT in 12 months. Reviewed, dictated and finalized at location B. IMPRESSION: 1. Lung-RADS category 1: Negative. Continue annual screening with noncontrast l ow-dose chest CT in 12 months.
== END ==
PROVIDERS: PCP Family Medicine; Visit Provider Nurse Practitioner Gerontology
DX: Z12.2 Encounter for screening for malignant neoplasm of respiratory organs (principal); Z72.0 Tobacco use
CPT/HCPCS: 71271